=== PATIENT | male | born 1990 | race Caucasian/White ===

== ENCOUNTER 2017-12-08 08:37 | Emergency (ER) | payer SELFPAY ==
[~2017-12-08] VITALS: Ht 193 cm; Wt 90.9 kg
[2017-12-08 08:45] VITALS: BP 136/80
[2017-12-08] MEDS ORDERED: CloNIDine HCL 0.1 MG TABLET PO ONE (09:45)
[2017-12-08] MEDS ORDERED: ONDANSETRON HCL 4 MG TABLET PO ONE (09:45)
== END 2017-12-08 10:15 | disposition home or self-care (01) ==
LOC: EMS 08:38
DX: F11.23 Opioid dependence with withdrawal (principal); R11.0 Nausea; G47.00 Insomnia, unspecified; F17.210 Nicotine dependence, cigarettes, uncomplicated
CPT/HCPCS: 99283; 99406; Q0162